=== PATIENT | female | born 1960 | race Caucasian/White ===

== ENCOUNTER 2017-11-13 20:25 | Emergency (ER) | payer BC ==
[2017-11-13] MEDS ORDERED: HYDROmorphone 1 MG/ML Syringe IM ONE (21:28)
--- NOTE | 2017-11-13 22:20 | EDM.PDOC ---
ED HPI GENERAL MEDICAL PROBLEM - General Chief Complaint: Lower Extremity Injury/Pain Stated Complaint: SPRAINED LEFT ANKLE Time Seen by Provider: 11/13/17 21:16 Source of Information: Reports: Patient, Family () History Limitations: Reports: No Limitations - History of Present Illness INITIAL COMMENTS - FREE TEXT/NARRATIVE: left ankle pain; this is a 57 year old female presents to ER with . reports she was at the [employer] this [place], was walking down the stand, when she fell and twisted her ankle. Pain with weightbearing is now here for evaluation. Onset: Sudden Onset Date: 11/13/17 Duration: Hour(s): Location: Reports: Lower Extremity, Left Quality: Reports: Ache, Stabbing (with wt bearing has increased pain. rate pain 5 at rest 10 with movement.) Severity: Moderate Improves with: Reports: Immobilization Worsens with: Reports: Movement Context: Reports: Other (fall at [employer]) Treatments MAINFRAME ARCHITECT: Reports: Cold Therapy Left Feet Pain Score (Numeric/FACES): 9 - Related Data Allergies Allergy/AdvReac Type Severity Reaction Status Date / Time Sulfa (Sulfonamide Allergy Rash Verified 11/13/17 21:38 Antibiotics) Home Meds: Home Meds traMADol [Ultram] 1 tab PO Q6HR PRN 11/13/17 [History] Past Medical History HEENT History: Reports: Impaired Vision [employer] History: Reports: Oncologic (Cancer) History: Reports: Other (See Below) Other Oncologic History: 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 - Infectious Disease History Infectious Disease History: Reports: Chicken Pox, Mononucleosis, Mumps - Past Surgical History Female Surgical History: Reports: Mastectomy Neurological Surgical History: Reports: Spinal Fusion, Other (See Below) Other Neurological Surgeries/Procedures: screws in back and rods Social & Family History - Family History Family Medical History: Noncontributory - Tobacco Use Smoking Status *Q: Never Smoker - Caffeine Use Caffeine Use: Reports: None - Recreational Drug Use Recreational Drug Use: Yes Recreational Drug Type: Reports: Marijuana/Hashish Review of Systems - Review of Systems Review Of Systems: See Below Constitutional: Reports: Other (left ankle pain) Musculoskeletal: Reports: Foot Pain, Joint Pain Skin: Reports: No Symptoms Neurological: Reports: No Symptoms Psychiatric: Reports: No Symptoms ED EXAM, GENERAL - Physical Exam Exam: See Below Exam Limited By: No Limitations General Appearance: Alert, WD/WN, No Apparent Distress, Anxious Extremities: Leg Pain, Limited Range of Motion (increase pain with any movement of the ankle. great toe pain .) Neurological: No Motor/Sensory Deficits Psychiatric: Anxious, Tearful Skin Exam: Warm, Dry, Intact, Normal Color, No Rash Lymphatic: No Adenopathy Course - Vital Signs Last Recorded V/S: Last Vital Signs Temp 36.6 C 11/13/17 21:39 Pulse 68 11/13/17 21:39 Resp 16 11/13/17 21:39 BP 140/62 11/13/17 21:39 Pulse Ox 98 11/13/17 21:39 - Orders/Labs/Meds Orders: Active Orders 24 hr Category Date Time Status Ankle Min 3V Lt [CR] Stat Exams 11/13/17 21:23 Taken Foot Comp Min 3V Lt [CR] Stat Exams 11/13/17 21:27 Taken DME for Discharge [COMM] Urgent Oth 11/13/17 22:11 Ordered Meds: Medications Discontinued Medications Generic Name Dose Route Start Last Admin Trade Name Gale PRN Reason Stop Dose Admin Hydromorphone HCl 1 mg 11/13/17 21:28 11/13/17 21:35 Dilaudid IM 11/13/17 21:29 1 mg ONETIME ONE Administration - Radiology Interpretation Free Text/Narrative:: xray of left foot and ankle is negative for any acute bony injury reviewed with Mr. and Mrs. Tell copy of xray given to patient for follow up place in air splint, crutches, advised to follow up in 7 to 10 days Departure - Departure Time of Disposition: 22:14 Disposition: Home, Self-Care 01 Condition: Good Clinical Impression: Ankle sprain Qualifiers: Encounter type: initial encounter Involved ligament of ankle: unspecified ligament Laterality: left Qualified Code(s): S93.402A - Sprain of unspecified ligament of left ankle, initial encounter - Discharge Information Instructions: Ankle Sprain, [id number] Referrals: PCP,None [Primary Care Provider] - Forms: ED Department Discharge Care Plan Goals: left ankle sprain -xray negative on ER read, await Radiologist complete report -given copy of xray. advised -rest, elevated leg to prevent swelling -use of crutches for next 5 days, then increase activity as tolerated -ice intermittently for 2 days -use over the counter Motrin or Tylenol for pain control -may use Hydrocodone 5-325mg one every 4 to 6 hours as needed for more severe pain.#10 Follow-up with Primary Care for recheck in 7 to 10 days - Problem List & Annotations (1) Ankle sprain SNOMED Code(s): 34533329 Code(s): S93.409A - SPRAIN OF UNSP LIGAMENT OF UNSPECIFIED ANKLE, INIT ENCNTR Status: Acute Priority: Medium Current Visit: Yes Qualifiers: Encounter type: initial encounter Involved ligament of ankle: unspecified ligament Laterality: left Qualified Code(s): S93.402A - Sprain of unspecified ligament of left ankle, initial encounter - Problem List Review Problem List Initiated/Reviewed/Updated: Yes - My Orders Last 24 Hours: My Active Orders 11/13/17 21:23 Ankle Min 3V Lt [CR] Stat 11/13/17 21:27 Foot Comp Min 3V Lt [CR] Stat 11/13/17 22:11 DME for Discharge [COMM] Urgent - Assessment/Plan Last 24 Hours: My Active Orders 11/13/17 21:23 Ankle Min 3V Lt [CR] Stat 11/13/17 21:27 Foot Comp Min 3V Lt [CR] Stat 11/13/17 22:11 DME for Discharge [COMM] Urgent Plan: left ankle sprain -xray negative on ER read, await Radiologist complete report -given copy of xray. advised -rest, elevated leg to prevent swelling -use of crutches for next 5 days, then increase activity as tolerated -ice intermittently for 2 days -use over the counter Motrin or Tylenol for pain control -may use Hydrocodone 5-325mg one every 4 to 6 hours as needed for more severe pain.#10 Follow-up with Primary Care for recheck in 7 to 10 days
--- NOTE | 2017-11-14 09:04 | CR ---
Ankle Min 3V Lt INDICATION: pain, twisted ankle COMPARISON: None FINDINGS: 3 views. Linear band of increased density in the distal tibial metaphysis could represen t a subtle nondisplaced fracture, versus normal variant. Otherwise negative. If symptoms persist anai mmend follow-up exam.
--- NOTE | 2017-11-14 09:15 | CR ---
Foot Comp Min 3V Lt INDICATION: pain, twisted, pain in gr toe COMPARISON: None FINDINGS: 3 views. No fracture, dislocation, or other acute bony abnormality. No joint space narr owing.
== END 2017-11-13 23:19 | disposition home or self-care (01) ==
LOC: JP.ED 20:25
DX: S93.402A Sprain of unspecified ligament of left ankle, initial encounter (principal); Z88.2 Allergy status to sulfonamides; W19.XXXA Unspecified fall, initial encounter
CPT/HCPCS: 73610; 73630; 96372; 99284; J1170